=== PATIENT | male | born 1985 | race Caucasian/White ===

== ENCOUNTER 2017-10-21 06:58 | Emergency (ER) | payer OTHER ==
[~2017-10-21] VITALS: Ht 185.4 cm; Wt 132.0 kg
[2017-10-21 07:04] VITALS: Ht 185.4 cm; Wt 132.0 kg
[2017-10-21 09:35] VITALS: BP 134/87
== END 2017-10-21 09:36 | disposition home or self-care (01) ==
LOC: ED 06:58
DX: J06.9 Acute upper respiratory infection, unspecified (principal)
CPT/HCPCS: J0780; J1200; J7030

== ENCOUNTER 2017-10-26 07:33 | Emergency (ER) | payer OTHER ==
[~2017-10-26] VITALS: Ht 185.4 cm; Wt 131.5 kg
[2017-10-26 07:36] VITALS: Ht 185.4 cm; Wt 131.5 kg
[2017-10-26 08:50] VITALS: BP 132/71
== END 2017-10-26 08:50 | disposition home or self-care (01) ==
LOC: ED 07:33
DX: J45.901 Unspecified asthma with (acute) exacerbation (principal)
CPT/HCPCS: J7613